=== PATIENT | female | born 1955 | race Caucasian/White ===

== ENCOUNTER 2019-12-30 16:09 | Emergency (ER) | payer BC, SELFPAY ==
--- NOTE | ~2019-12-30 | XR_ITS ---
EXAMINATION: XR shoulder RT min 2V, XR humerus RT EXAM DATE: 12/30/2019 16:53 (accession [id number]), 12/30/2019 16:52 (accession [id number]) INDICATION: Fall, right shoulder pain. TECHNIQUE: The following right shoulder projections obtained: frontal projection , Grashey, and scapu lar Y view (4+ views). 2 orthogonal projections right humerus. FINDINGS: There is acute closed posttraumatic in comminuted fracture of the right humeral neck exte nding through the greater tuberosity. Several small avulsed fractures identified superior to the monik ral head. There is moderate posterior angulation, mild displacement. No humeral head dislocation. IMPRESSION: 1. Acute right humeral neck/greater tuberosity fractures. Reviewed, dictated and finalized at location A. IMPRESSION: 1. Acute right humeral neck/greater tuberosity fractures.
[2019-12-30 16:12] VITALS: BP 127/74; PULSE 98; RESP 15; TEMP 36.6; O2SAT 98
--- NOTE | 2019-12-30 16:47 | ED.UPPEXIN ---
HPI - Extremity Injury (Upper) General Chief Complaint: Extremity Injury, Upper Stated Complaint: arm injury Time Seen by Provider: 12/30/19 16:22 Source: patient Mode of arrival: ambulatory Limitations: no limitations History of Present Illness HPI narrative: Patient is a 64-year-old female who presents to emergency department for evaluation of right upper extremity injury patient notes Tuesday she slipped landing on the right upper extremity injuring the right shoulder mid humerus where she now has moderate aching pain with some bruising. Pain is worse with activity and movement patient denies head injury syncope or other injuries or complaints and on arrival is in the room in no distress resting comfortably patient attempted [id number] medications and rest with minimal improvement Related Data Allergies Allergy/AdvReac Type Severity Reaction Status Date / Time No Known Allergies Allergy Verified 12/30/19 16:10 Review of Systems Review of Systems: All systems reviewed & are unremarkable except as noted in HPI and below Exam Narrative: Exam Narrative: GENERAL: Well-appearing, well-nourished, and in no acute distress. HEAD: Normocephalic, atraumatic. EYES: PERRLA and EOMI. ENT: Nares clear, no rhinorrhea or epistaxis. Mucous membranes moist. NECK: Supple. No adenopathy or masses. CHEST: Clear to auscultation. No respiratory distress. No wheezes rales or rhonchi HEART: Regular rate and rhythm. No murmur heard. EXTREMITIES: Normal range of motion. No edema. Tenderness with swelling of the right shoulder and mid humerus with some bruising down towards the elbow. No midline cervical thoracic or lumbar tenderness SKIN: Warm, dry, no rash. NEURO: No focal deficits. Alert and oriented x3. Neurovascularly intact. Capillary refill less than 2 seconds. Cranial nerves II through XII grossly intact PSYCH: Normal mood and affect. Course Course Emergency Course: Patient is a 64-year-old female who presented with arm fracture that occurred Tuesday placed in splint after imaging aware of discussion with orthopedic surgery agreeing to follow-up with orthopedic surgery Consultations Consultation #1: Discussed case with orthopedic surgery who will follow patient in clinic would like the patient to be placed in an immobilizer Date: 12/30/19 Time: 17:17 Vital Signs Vital signs: Vital Signs Temperature 97.8 F 12/30/19 16:12 Pulse Rate 98 12/30/19 16:12 Respiratory Rate 15 12/30/19 16:12 Blood Pressure 127/74 12/30/19 16:12 Pulse Oximetry 98 12/30/19 16:12 Temperature 97.8 F 12/30/19 16:12 Pulse Rate 98 12/30/19 16:12 Respiratory Rate 15 12/30/19 16:12 Blood Pressure 127/74 12/30/19 16:12 Pulse Oximetry 98 12/30/19 16:12 MDM - Extremity Injury (Upper) MDM Narrative Medical decision making narrative: Patients injury or pain is consistent with musculoskeletal etiology. No signs of neurological or vascular compromise on exam. Compartments and tisues are soft without signs of compartment syndrome. Pain is felt appropriate for further evaluation on an outpatient basis. Discharge Plan Discharge Clinical Impression: Fracture of right shoulder Patient Disposition: Home, Self-Care Condition: Stable Instructions: Antibiotic Form, Arm Fracture in Adults (ED) Additional Instructions: Follow-up with orthopedic surgery by phone tomorrow to set up for reevaluation. Go to ER for shortness of breath, difficulty breathing, chest pain, fever/chills, weakness, nauseau/vomitting, any discoloration of the extremity loss of feeling or function in the extremity etc. or any other concerns. Follow patient education sheets Take any prescribed medications as directed. Wear sling with intermittent icing for symptom relief If you do not have a drug allergy to tylenol or motrin and can tolerate it then take tylenol or motrin as needed for discomfort/pain. Prescriptions: New hydrocodone-acetaminophen
== END 2019-12-30 18:20 | disposition home or self-care (01) ==
PROVIDERS: Emergency Provider Emergency Medicine; PCP Internal Medicine
DX: S42.251A Displaced fracture of greater tuberosity of right humerus, initial encounter for closed fracture (principal); S42.291A Other displaced fracture of upper end of right humerus, initial encounter for closed fracture; W01.0XXA Fall on same level from slipping, tripping and stumbling without subsequent striking against object, initial encounter
CPT/HCPCS: 73030; 73060; 99284

== ENCOUNTER 2020-01-03 15:45 | Outpatient (CLI) | payer BC, SELFPAY ==
--- NOTE | ~2020-01-03 | CT_ITS ---
EXAMINATION: CT shoulder RT wo con DATE: 01/03/2020 16:27 INDICATION: Proximal right humerus fracture. TECHNIQUE: Computed tomography (CT) of the right shoulder was performed without intravenous contrast. Automated exposure control and iterative reconstruction technique were employed. The dose-length pro duct was 477.30 mGy-cm. COMPARISON: Right shoulder radiographs 12/30/2019 FINDINGS: The acromion undersurface is flat in morphology (type I). There is a comminuted fracture of proximal humerus at the surgical neck. The greater and lesser tuberosities are not involved. The elaina n distal fracture fragment demonstrates impaction and 31 degrees posterior angulation. There is mild acromioclavicular joint osteoarthritis and severe glenohumeral joint osteoarthritis. There are loose bodies in the glenohumeral joint. There is calcific tendinitis of the rotator cuff. There is no asymm etric fatty atrophy of the rotator cuff muscle bellies. IMPRESSION: 1. Comminuted two-part fracture of proximal right humerus. 2. Severe glenohumeral joint osteoarthritis with loose bodies. 3. Calcific tendinitis of the rotator cuff. Reviewed, dictated and finalized at location B.
== END 2020-01-03 15:46 | disposition home or self-care (01) ==
PROVIDERS: PCP Internal Medicine; Visit Provider Orthopaedic Surgery
DX: S42.291A Other displaced fracture of upper end of right humerus, initial encounter for closed fracture (principal); M19.011 Primary osteoarthritis, right shoulder; M24.011 Loose body in right shoulder; M75.31 Calcific tendinitis of right shoulder
CPT/HCPCS: 73200

== ENCOUNTER 2022-06-23 17:43 | Emergency (ER) | payer BC, SELFPAY ==
[2022-06-23 17:46] VITALS: BP 169/85; PULSE 91; RESP 16; TEMP 36.4; O2SAT 97
--- NOTE | 2022-06-23 18:54 | ED.GENADULT ---
HPI - General Adult General Chief complaint: Extremity Injury, Upper Stated complaint: right wrist fracture Time Seen by Provider: 06/23/22 18:10 History of Present Illness HPI narrative: this is a 67-year-old female presenting to ED with wrist pain. Patient slipped and fell on ice yesterday. She then drove home and went to bed. When she woke this morning she was still having pain and some deformity wrists she went to an Urgent Care. At that point she was found have a distal radius fracture. She was put in a splint and sent to the emergency department for further evaluation. The patient says her pain is controlled with Tylenol. She denies numbness tingling weakness to her hand. Related Data Home Medications Medication Instructions Recorded Confirmed ixekizumab 80 mg/mL subcutaneous mg subcut 06/23/22 auto-injector (Taltz Autoinjector) Allergies Allergy/AdvReac Type Severity Reaction Status Date / Time No Known Allergies Allergy Verified 06/23/22 18:15 Review of Systems Review of Systems: All systems reviewed & are unremarkable except as noted in HPI and below [facility] Past Medical History Medical History (Updated 06/23/22 @ 19:01 by Zach Kang MD) Proximal humerus fracture Surgical History Surgical History History of bilateral mastectomy Social History Social History Social History: Patient drinks alcohol occasionally, denies tobacco or drug use Exam Narrative: APPEARANCE: No apparent distress. Head: atraumatic. EYES: EOMI, NOSE: Atraumatic NECK: Trachea midline RESPIRATORY: No increased rate of breathing CARDIOVASCULAR: RRR, ABDOMINAL: Non-distended MUSCULOSKELETAl: short-arm volar splint in place in the right arm, neurovascularly intact after the splint. NEURO: Alert. Moving 4/4 extremities SKIN:: Warm, dry. Normal color PSYCHIATRIC: Normal affect Course Vital Signs Vital signs: Vital Signs Temperature 97.6 F 06/23/22 17:46 Pulse Rate 91 06/23/22 17:46 Respiratory Rate 16 06/23/22 17:46 Blood Pressure 169/85 H 06/23/22 17:46 Pulse Oximetry 97 06/23/22 17:46 Temperature 97.6 F 06/23/22 17:46 Pulse Rate 91 06/23/22 17:46 Respiratory Rate 16 06/23/22 17:46 Blood Pressure 169/85 H 06/23/22 17:46 Pulse Oximetry 97 06/23/22 17:46 Medical Decision Making [facility] Narrative Medical decision making narrative: -Presentation: 67-year-old female presenting from urgent care with a distal radius fracture. -DDX includes but is not limited to: Distal radius fracture -Co-morbidities complicating care: none -Social determinants of health: noncontributory -External Chart Review: review of external x-rays showed a minimally displaced radius fracture. -Hx from independent Sources: None -Discussion of Management/Consultants: none -Independent interpretation of studies: external x-ray showed a minimally displaced radius fracture -Procedures: none -Interventions: 1000 mg Tylenol -Shared decision making / Disposition: patient's radius fractures not require reduction. It is already in a short-arm splint. the patient will be given Tylenol for pain control. She will be instructed to follow-up with orthopedics in 5-7 days for further evaluation. -RX Vital Signs Vital Signs: Vital Signs Temperature 97.6 F 06/23/22 17:46 Pulse Rate 91 06/23/22 17:46 Respiratory Rate 16 06/23/22 17:46 Blood Pressure 169/85 H 06/23/22 17:46 Pulse Oximetry 97 06/23/22 17:46 Temperature 97.6 F 06/23/22 17:46 Pulse Rate 91 06/23/22 17:46 Respiratory Rate 16 06/23/22 17:46 Blood Pressure 169/85 H 06/23/22 17:46 Pulse Oximetry 97 06/23/22 17:46 Discharge Plan Discharge Clinical Impression: Fracture of wrist Patient Disposition: Home, Self-Care Condition: Stable Instructions: Antibiotic
[2022-06-23] MEDS: ACETAMINOPHEN 500 MG TABLET 1000 MG PO (19:15)
== END 2022-06-23 19:40 | disposition home or self-care (01) ==
PROVIDERS: Emergency Provider Emergency Medicine
DX: S52.501A Unspecified fracture of the lower end of right radius, initial encounter for closed fracture (principal); W00.9XXA Unspecified fall due to ice and snow, initial encounter
CPT/HCPCS: 99283; A9270